=== PATIENT | female | born 1945 | race Caucasian/White ===

== ENCOUNTER 2019-12-18 06:01 | Day surgery (SDC) | payer MEDICARE, OTHER ==
[~2019-12-18 06:01] MED LIST: Lactated Ringers 1,000 ML IV SCH; Lidocaine 1%/Sod Bicarbonate in NS 8.4% 1 ML Syringe IDERM PRN; Sodium Chloride 0.9% 10 ML Syringe FLUSH PRN
--- NOTE | 2019-12-18 06:29 | PCM.PREANE ---
Preanesthetic Assessment - Procedure Proposed Procedure: right ring finger a-1 promise - Anesthesia/Transfusion/Family Hx Anesthesia History: Prior Anesthesia Without Reaction Family History of Anesthesia Reaction: No Transfusion History: Unknown - Review of Systems General: No Symptoms Pulmonary: No Symptoms Cardiovascular: Palpitations (afib) Gastrointestinal: No Symptoms Neurological: No Symptoms Other: Reports: Diabetes - Physical Assessment NPO Status Date: 12/17/19 NPO Status Time: 20:30 Vital Signs: 142/79 59 96% 20 Height: 5 ft 8 in Weight: 107.2 kg ASA Class: 3 Mental Status: Alert & Oriented x3 Airway Class: Mallampati = 1 Dentition: Reports: Dentures (upper ), Bridge (on bottom) Thyro-Mental Finger Breadths: 3 Mouth Opening Finger Breadths: 3 ROM/Head Extension: Full Lungs: Clear to Auscultation, Normal Respiratory Effort Cardiovascular: Regular Rate, Regular Rhythm - Lab Values: Laboratory Last Values SARS-CoV-2 (PCR) Not detected (NOT DETECT) 12/14/19 10:00 MRSA (PCR) Negative 12/13/19 16:05 - Blood Blood Available: No - Acknowledgements Anesthesia Type Planned: MAC Pt an Appropriate Candidate for the Planned Anesthesia: Yes Alternatives and Risks of Anesthesia Discussed w Pt/Guardian: Yes Pt/Guardian Understands and Agrees with Anesthesia Plan: Yes PreAnesthesia Questionnaire Cardiovascular History: Reports: Afib, High Cholesterol, Hypertension Respiratory History: Reports: None Gastrointestinal History: Reports: GERD Psychiatric History: Reports: Anxiety Endocrine/Metabolic History: Reports: Diabetes, Type II, Obesity/BMI 30+ Oncologic (Cancer) History: Reports: None - Past Surgical History Cardiovascular Surgical History: Reports: Cardiac Ablation GI Surgical History: Reports: Appendectomy, Colonoscopy Neurological Surgical History: Reports: Laminectomy Musculoskeletal Surgical History: Reports: Knee Replacement, Other (See Below) (ankle) - SUBSTANCE USE Smoking Status *Q: Former Smoker Tobacco Use Within Last Twelve Months: No Second Hand Smoke Exposure: No Days Per Week of Alcohol Use: 0 Number of Drinks Per Day: 0 Total Drinks Per Week: 0 Recreational Drug Use History: No - CURRENT (IN HOUSE) MEDS Current Meds: Current Medications Lactated Ringer's (Ringers, Lactated) 1,000 mls @ 125 mls/hr IV ASDIRECTED FLORENCIA Stop: 12/18/19 23:00 Lidocaine/Sodium Bicarbonate (Buffered Lidocaine 1% In Ns 8.4%) 0.25 ml IDERM ONETIME PRN PRN Reason: Prior to IV Start Stop: 12/18/19 18:00 Sodium Chloride (Saline Flush) 10 ml FLUSH ASDIRECTED PRN PRN Reason: Keep Vein Open Stop: 12/18/19 18:00
[2019-12-18] MEDS ORDERED: Bupivacaine 0.25% 10 ML SDV ONE (06:30)
[2019-12-18] MEDS ORDERED: Lidocaine 1% 30 ML SDV ONE (06:30)
[2019-12-18] MEDS ORDERED: Propofol 200 MG/20 ML SDV ONE ×2 (06:33→07:04)
[2019-12-18] MEDS ORDERED: Lidocaine 1% 4 ML ONE (06:34)
[2019-12-18] MEDS ORDERED: fentaNYL 100 MCG/2 ML SDV ONE (06:34)
[2019-12-18] MEDS ORDERED: Ondansetron 4 MG/2 ML SDV ONE (06:34)
[2019-12-18] MEDS ORDERED: ceFAZolin 1 GM Vial ONE (06:39)
[2019-12-18] MEDS ORDERED: Lactated Ringers 1,000 ML ONE (07:23)
--- NOTE | 2019-12-18 07:35 | PCM.POSTAN ---
POST ANESTHESIA ASSESSMENT - MENTAL STATUS Mental Status: Alert, Oriented - VITAL SIGNS Vital Signs: Last Vital Signs Temp 96.9 F 12/18/19 06:05 Pulse 59 L 12/18/19 06:05 Resp 18 12/18/19 06:05 BP 142/79 H 12/18/19 06:05 Pulse Ox 96 12/18/19 06:05 119/67 94% on 3L 50 12 98.0f - RESPIRATORY Respiratory Status: Respiratory Rate WNL, Airway Patent, O2 Saturation Stable, Supplemental Oxygen - CARDIOVASCULAR CV Status: Pulse Rate WNL, Blood Pressure Stable - GASTROINTESTINAL GI Status: No Symptoms - PAIN Pain Score: 0 - POST OP HYDRATION Hydration Status: Adequate & Stable
--- NOTE | 2019-12-25 07:41 | PCM.OPNOTE ---
- General Post-Op/Procedure Note Date of Surgery/Procedure: 12/18/19 Operative Procedure(s): right ring finger a1 promise release Pre Op Diagnosis: right ring finger stenosing tenosynovitis Post-Op Diagnosis: Same Anesthesia Technique: Local, MAC Primary Surgeon: Issac Rojas Anesthesia Provider: Sanjana Hamilton Sash Assembler: Maria Eugenia Aguilar EBL in mLs: 5 Complications: None Condition: Good
--- NOTE | 2019-12-25 11:17 | OR ---
DATE OF OPERATION: 12/18/2019 SURGEON: Issac Rojas MD OPERATION PERFORMED: Right ring finger A1 promise release. PREOPERATIVE DIAGNOSIS: Right ring finger stenosing tenosynovitis. POSTOPERATIVE DIAGNOSIS: Right ring finger stenosing tenosynovitis. ANESTHESIA: Local, MAC. ANESTHESIA PROVIDER: Sanjana Hamilton CRNA CONSULTING GROUP ANALYST: Maria Eugenia Aguilar PA-C. ESTIMATED BLOOD LOSS: 5 mL. COMPLICATIONS: None. CONDITION: Stable. DESCRIPTION OF PROCEDURE: The patient was identified in the preoperative holding area. Proper site was marked and identified by the surgeon. The patient was taken back to the operative theater where, after adequate anesthesia, the patient's right upper extremity was sterilely prepped and draped in the usual sterile fashion. OR time-out was performed. The patient received no antibiotics as it was not indicated for soft tissue hand procedure. At this time, the right upper extremity was exsanguinated with an Esmarch. An Esmarch was used as a tourniquet on the forearm. 1% lidocaine without epinephrine and 0.25% Marcaine without epinephrine were used to anesthetize over the A1 promise. Transverse incision was then made. Ragnell retractors were placed on the radial and ulnar side to protect the neurovascular bundles. A [place] blade was then used to resect the A1 promise both proximally and distally. It was found to be adequately released both proximally and distally. The tendon was brought through the wound bed. There were no tendinous adhesions noted. Adequate saline was irrigated through the wound, and 4-0 nylon suture was used for closure of the wound. The patient tolerated the procedure well and was sent to the PACU in stable condition. MMODAL /[id number]
== END 2019-12-18 08:40 | disposition home or self-care (01) ==
LOC: JD.SDS 06:01 → EDBD 07:30 → JD.SDS 08:40
PROVIDERS: ATTEND Orthopaedic Surgery
DX: M65.841 Other synovitis and tenosynovitis, right hand (principal); E11.59 Type 2 diabetes mellitus with other circulatory complications; I48.91 Unspecified atrial fibrillation; I44.0 Atrioventricular block, first degree; E66.9 Obesity, unspecified; N17.9 Acute kidney failure, unspecified; I13.0 Hypertensive heart and chronic kidney disease with heart failure and stage 1 through stage 4 chronic kidney disease, or unspecified chronic kidney disease; E11.22 Type 2 diabetes mellitus with diabetic chronic kidney disease; N18.9 Chronic kidney disease, unspecified; E78.00 Pure hypercholesterolemia, unspecified; F41.9 Anxiety disorder, unspecified; K21.9 Gastro-esophageal reflux disease without esophagitis; Z01.812 Encounter for preprocedural laboratory examination; Z20.828 Contact with and (suspected) exposure to other viral communicable diseases; Z79.01 Long term (current) use of anticoagulants; Z79.899 Other long term (current) drug therapy; Z79.4 Long term (current) use of insulin; Z88.0 Allergy status to penicillin; Z88.8 Allergy status to other drugs, medicaments and biological substances; Z98.890 Other specified postprocedural states; Z87.891 Personal history of nicotine dependence; Z68.36 Body mass index [BMI] 36.0-36.9, adult
CPT/HCPCS: 26055; 82962; 87641; J0690; J2001; J2405; J2704; J3010; J3490; J7120; U0002; 01810

== ENCOUNTER 2021-11-24 06:03 | Day surgery (SDC) | payer MEDICARE, OTHER ==
[~2021-11-24 06:03] MED LIST changes: +Sodium Chloride 0.9% 10 ML Syringe FLUSH SCH
[2021-11-24] MEDS ORDERED: Lidocaine 1% 10 ML MDV ONE (06:33)
[2021-11-24] MEDS ORDERED: Bupivacaine 0.25% 10 ML SDV ONE ×2 (06:33→07:08)
[2021-11-24] MEDS ORDERED: Lidocaine 1% 0 ML ONE (06:35)
[2021-11-24] MEDS ORDERED: Propofol 200 MG/20 ML SDV ONE (06:35)
[2021-11-24] MEDS ORDERED: Midazolam 1 MG/ML 2 ML SDV ONE (06:35)
[2021-11-24] MEDS ORDERED: fentaNYL 100 MCG/2 ML SDV ONE (06:35)
[2021-11-24] MEDS ORDERED: Triamcinolone Acetonide 40 MG/ML 1 ML SDV ONE (07:03)
[2021-11-24] MEDS ORDERED: Ondansetron 4 MG/2 ML SDV ONE (07:19)
[2021-11-24] MEDS ORDERED: Ketorolac 15 MG/ML SDV ONE (07:19)
[2021-11-24] MEDS ORDERED: ceFAZolin 2 GM Vial ONE (07:25)
== END 2021-11-24 08:40 | disposition home or self-care (01) ==
LOC: EDBD → JD.SDS 06:03
PROVIDERS: ATTEND Orthopaedic Surgery
DX: M65.841 Other synovitis and tenosynovitis, right hand (principal); M65.331 Trigger finger, right middle finger; M65.341 Trigger finger, right ring finger; I11.0 Hypertensive heart disease with heart failure; I50.32 Chronic diastolic (congestive) heart failure; E11.59 Type 2 diabetes mellitus with other circulatory complications; I48.91 Unspecified atrial fibrillation; I48.92 Unspecified atrial flutter; K21.9 Gastro-esophageal reflux disease without esophagitis; E66.9 Obesity, unspecified; E78.5 Hyperlipidemia, unspecified; G47.33 Obstructive sleep apnea (adult) (pediatric); F41.9 Anxiety disorder, unspecified; Z90.49 Acquired absence of other specified parts of digestive tract; Z98.890 Other specified postprocedural states; Z87.891 Personal history of nicotine dependence; Z79.899 Other long term (current) drug therapy; Z79.4 Long term (current) use of insulin; Z68.38 Body mass index [BMI] 38.0-38.9, adult
CPT/HCPCS: 20552; 26055; J0690; J1885; J2250; J2405; J2704; J3010; J3301; J3490; J7120; 01810

== ENCOUNTER 2021-12-27 16:17 | Emergency (ER) | payer MEDICARE, OTHER | END 2021-12-27 19:30 | disposition home or self-care (01) | LOC: JD.ED 16:17 | DX: R26.89 Other abnormalities of gait and mobility (principal); I11.0 Hypertensive heart disease with heart failure; I50.9 Heart failure, unspecified; E11.9 Type 2 diabetes mellitus without complications; E66.9 Obesity, unspecified; Z68.37 Body mass index [BMI] 37.0-37.9, adult; Z88.0 Allergy status to penicillin; Z88.8 Allergy status to other drugs, medicaments and biological substances; Z79.899 Other long term (current) drug therapy; Z90.49 Acquired absence of other specified parts of digestive tract | CPT/HCPCS: 36415; 70450; 70450-26; 80053; 82947; 85025; 93005; 99284 ==